=== PATIENT | female | born 1960 | race Hispanic/Latino ===

== ENCOUNTER 2020-05-13 07:11 | Observation (INO) | payer OTHER ==
[2020-05-11 15:31] LABS: BASOPHILS % 0.5 % (0.0-1.0); EOSINOPHILS # (AUTO) 0.3 (0.0-0.4); EOSINOPHILS % 3.8 % (0.0-6.0); HEMATOCRIT 40.3 % (34.2-44.1); HEMOGLOBIN 12.7 g/dL (12.0-16.0); LYMPHOCYTES # (AUTO) 1.6 (1.0-3.2); LYMPHOCYTES % 23.9 % (18.0-39.1); MEAN CORPUSCULAR HEMOGLOBIN 27.9 pg (28-32); MEAN CORPUSCULAR HGB CONC 31.5 g/dL (31-35); MEAN CORPUSCULAR VOLUME 88.6 fL (81-99); MONOCYTES # (AUTO) 0.4 (0.2-0.8); MONOCYTES % 5.7 % (4.4-11.3); NEUTROPHILS # (AUTO) 4.4 (2.1-6.9); NEUTROPHILS % 65.8 % (38.7-80.0); PLATELET COUNT 312 x10e3/uL (140-360); RED BLOOD COUNT 4.55 x10e6/uL (3.6-5.1); RED CELL DISTRIBUTION WIDTH 14.4 % (11.7-14.4)
[2020-05-11 15:41] LABS: INR 0.8; PROTHROMBIN TIME 11.6 seconds (11.9-14.5)
[2020-05-11 15:42] LABS: PARTIAL THROMBOPLASTIN TIME 26.1 seconds (23.8-35.5)
[2020-05-11 15:46] LABS: ANION GAP 15.8 mmol/L (8-16); CALCIUM 10.1 mg/dL (8.4-10.2); CREATININE, SERUM 0.97 mg/dL (0.57-1.11); POTASSIUM 4.8 mmol/L (3.5-5.1)
[2020-05-13] VITALS (7 sets, daily range): BP systolic 110–129; BP diastolic 56–71
[~2020-05-13] VITALS: Ht 170.2 cm; Wt 138.8 kg
[~2020-05-13 07:11] MED LIST: CRESTOR10 MG PO; FARXIGA10 MG PO; GABAPENTIN100 MG PO; GLIMEPIRIDE4 MG PO; HYDROCHLOROTH12.5 MG PO; HYDROCODON-ACE1 EAC9 PO; LEVEMIR100 UNIT/1 SC; LIDOCAINE 1% W/EPINEPHRINE 20 ML VIAL ONE; LISINOPRIL40 MG PO; METFORMIN HCL1000 MG PO; NOVOLOG100 UNIT/1 SC; SLOW-MAG64 MG PO; THROMBIN FOR SOLN 5,000 UNIT VIAL ONE; TRULICITY4.5 MG/0.5 SC; TYLENOL325 MG PO; VANCOMYCIN HCL 1 GM VIAL ONE; VIT B; VIT D PO
[2020-05-13] MEDS ORDERED: LIDOCAINE HCL (LTA) 4 ML SOLN ONE (07:21)
[2020-05-13] MEDS ORDERED: IBUPROFEN 800MG/ 200ML 200 ML IV ONE (07:21)
[2020-05-13] MEDS ORDERED: ACETAMINOPHEN 1000 MG/100 ML 100 ML IV ONE (07:21)
[2020-05-13] MEDS ORDERED: CEFAZOLIN SOD 1 GM/NS 50ML 50 ML IV ONE ×2 (08:14→08:16)
[2020-05-13] MEDS ORDERED: SUGAMMADEX SODIUM 200 MG/2 ML VIAL IV ONE (09:34)
[2020-05-13] MEDS ORDERED: HYDROMORPHONE 2MG/ML 2 MG/ML ML IV PRN (10:15)
[2020-05-13] MEDS ORDERED: HYDROCODONE/APAP 10MG-325MG TAB PO SCH (10:15)
[2020-05-13] MEDS ORDERED: DEXTROSE 50% SYRINGE 50 ML IV PRN (10:15)
[2020-05-13] MEDS ORDERED: PROMETHAZINE HCL (IM) 25 MG/ML VIAL IM PRN (10:15)
[2020-05-13] MEDS ORDERED: ACETAMINOPHEN 325 MG TAB PO PRN (10:15)
[2020-05-13] MEDS ORDERED: ONDANSETRON HCL INJ 2MG/ML 2ML 2 MG/ML VIAL IV PRN (10:15)
[2020-05-13] MEDS ORDERED: MORPHINE SULFATE 5 MG/ML VIAL IM PRN (10:15)
[2020-05-13] MEDS ORDERED: OXYCODONE/ACETAMINOPHEN 5-325 1 EACH TABLET PO PRN (10:15)
[2020-05-13] MEDS: LACTATED RINGER'S 1,000 ML IV SCH ×2 (10:15→17:56)
[2020-05-13] MEDS ORDERED: CARISOPRODOL 350 MG TAB PO PRN (10:15)
[2020-05-13] MEDS ORDERED: MAGNESIUM/ALUMINUM/SIMETHICONE 30 ML UDC PO PRN (10:15)
[2020-05-13] MEDS ORDERED: HYDROCODON-ACE1 EA12 PO (10:16)
[2020-05-13] MEDS ORDERED: FENTANYL CITRATE/PF 100MCG/2 ML INJ ONE ×2 (10:46→14:09)
[2020-05-13] MEDS: INSULIN LISPRO 100 UNIT/1 ML 3ML VIAL SQ SCH ×2 (12:19→17:00)
[2020-05-13] MEDS ORDERED: MIDAZOLAM HCL 2 MG/2 ML VIAL ONE (14:09)
[2020-05-13] MEDS ORDERED: NON-FORMULARY MEDICATION (Metformin Hcl 1,000 MG) PO SCH (17:00)
[2020-05-13] MEDS: METFORMIN HCL 500 MG TAB PO SCH (17:21)
[2020-05-13] MEDS: CEFAZOLIN SOD 1 GM/NS 50ML 50 ML IV SCH (17:21)
[2020-05-13] MEDS ORDERED: LIDOCAINE HCL 2% LOCAL INJ 5 ML SDV VIAL INJ ONE (17:25)
[2020-05-13] MEDS ORDERED: ONDANSETRON HCL INJ 2MG/ML 2ML 2 MG/ML VIAL ONE (17:25)
[2020-05-13] MEDS ORDERED: PROPOFOL IV EMULSION 10 MG/ML 20 ML VIAL ONE (17:25)
[2020-05-13] MEDS ORDERED: SEVOFLURANE INHAL SOLN 250 ML PEN BTL ONE (17:25)
[2020-05-13] MEDS ORDERED: ROCURONIUM BROMIDE 10 MG/ML 5ML VIAL IV ONE (17:25)
[2020-05-13] MEDS ORDERED: LIDOCAINE HCL 2% JELLY 5 ML TUBE ONE (17:25)
[2020-05-13] MEDS ORDERED: DEXAMETHASONE SOD PHOS INJ 4 MG/ML VIAL ONE (17:25)
[2020-05-13] MEDS ORDERED: SIMVASTATIN 20 MG TAB PO SCH (21:00)
[2020-05-13] MEDS ORDERED: ZOLPIDEM TARTRATE 5 MG TAB PO PRN (21:00)
[2020-05-13] MEDS ORDERED: INSULIN DETEMIR 75 UNIT SC SCH (21:00)
[2020-05-13] MEDS ORDERED: LISINOPRIL 20 MG TAB PO SCH (21:00)
[2020-05-13] MEDS ORDERED: VIT D PO SCH (21:00)
[2020-05-13] MEDS ORDERED: MAGNESIUM OXIDE 400 MG TAB PO SCH (21:00)
[2020-05-13] MEDS ORDERED: INSULIN GLARGINE 100 UNITS/ML VIAL SQ SCH (21:00)
[2020-05-13] MEDS ORDERED: NON-FORMULARY MEDICATION (Lisinopril 20 MG) PO SCH (21:00)
[2020-05-13] MEDS ORDERED: CHOLECALCIFEROL 1,000 UNIT TAB PO SCH (21:00)
[2020-05-14] VITALS: BP 109/66
[2020-05-14] MEDS: CEFAZOLIN SOD 1 GM/NS 50ML 50 ML IV SCH ×2 (00:29→07:55)
[2020-05-14] MEDS: LACTATED RINGER'S 1,000 ML IV SCH (00:35)
[2020-05-14 04:00] VITALS: BP 110/69
[2020-05-14] MEDS: METFORMIN HCL 500 MG TAB PO SCH (07:57)
[2020-05-14] MEDS ORDERED: ONDANSETRON HCL 4 MG ORAL DISINTEGRATING TAB PO PRN (08:45)
[2020-05-14] MEDS ORDERED: GABAPENTIN 100 MG CAP PO SCH (09:00)
== END 2020-05-14 09:48 | disposition home or self-care (01) ==
LOC: OR 07:11 → PACU V 10:12 → MED/SURG 11:13
PROVIDERS: ADMIT Neurological Surgery; ATTEND Neurological Surgery
DX: M48.062 Spinal stenosis, lumbar region with neurogenic claudication (principal); I10 Essential (primary) hypertension; E78.5 Hyperlipidemia, unspecified; E11.9 Type 2 diabetes mellitus without complications; E66.9 Obesity, unspecified; Z68.42 Body mass index [BMI] 45.0-49.9, adult; Z79.4 Long term (current) use of insulin; Z01.810 Encounter for preprocedural cardiovascular examination; Z01.812 Encounter for preprocedural laboratory examination; Z01.818 Encounter for other preprocedural examination; Z20.822 Contact with and (suspected) exposure to COVID-19
CPT/HCPCS: 36415 ×2; 63047; 71046; 72020; 80048; 82948; 85025; 85610; 85730; 86850; 86900; 88304; 93005; 96372; G0378 ×2; J0131; J0690 ×2; J1100; J1815; J2001 ×2; J2250; J2405; J2704; J3010; J3370; U0002